=== PATIENT | female | born 1955 | race Caucasian/White ===

== ENCOUNTER 2019-05-22 19:49 | Emergency (ER) | payer OTHER ==
[~2019-05-22] VITALS: Ht 170.2 cm; Wt 102.1 kg
[~2019-05-22 19:49] MED LIST: CIPRO250 M1 PO; CIPROFLOXACIN500 M1 PO; FLAGYL500 MG PO; HYDROCODONE-AP1 EAC6 PO; IBUPROFEN 800800 M1 PO; LIPITOR20 MG PO; LISINOPRIL10 MG PO; NAPROSYN500 MG PO; NORCO 5-325 TA1 EACH PO; OXYCODONE HCL 55 MG PO; SYNTHROID300 MCG PO; ULTRAM 50MG TAB50 MG PO; VICODIN ES 7.51 EACH PO
[2019-05-22] MEDS ORDERED: GLUCOTROL5 MG PO (20:07)
[2019-05-22] MEDS ORDERED: SERTRALINE HCL25 MG PO (20:09)
[2019-05-22] MEDS ORDERED: COLCHICINE0.6 M1 PO (20:55)
[2019-05-22] MEDS ORDERED: INDOMETHACIN 5050 M1 PO (20:55)
[2019-05-22 21:37] VITALS: BP 153/89
== END 2019-05-22 21:39 | disposition home or self-care (01) ==
LOC: M.ERS 19:49
DX: M13.871 Other specified arthritis, right ankle and foot (principal); E03.9 Hypothyroidism, unspecified; E78.5 Hyperlipidemia, unspecified; Z98.890 Other specified postprocedural states; F17.210 Nicotine dependence, cigarettes, uncomplicated; Z88.6 Allergy status to analgesic agent; Z88.5 Allergy status to narcotic agent